=== PATIENT | female | born 1995 | race Two or more races ===

== ENCOUNTER 2020-03-29 11:00 | Day surgery (SDC) | payer OTHER ==
[~2020-03-29 11:00] MED LIST: SYNTHROID88 MCG PO
== END 2020-03-29 17:05 | disposition home or self-care (01) ==
LOC: CIR.AMB 11:00
PROVIDERS: ATTEND Orthopaedic Surgery Hand Surgery
DX: M19.131 Post-traumatic osteoarthritis, right wrist (principal); Z20.828 Contact with and (suspected) exposure to other viral communicable diseases

== ENCOUNTER 2021-04-25 07:03 | Day surgery (SDC) | payer OTHER | END 2021-04-25 18:05 | disposition home or self-care (01) | LOC: CIR.AMB 07:03 | PROVIDERS: ATTEND Orthopaedic Surgery Hand Surgery | DX: M19.141 Post-traumatic osteoarthritis, right hand (principal); Z96.691 Finger-joint replacement of right hand; M24.641 Ankylosis, right hand ==